=== PATIENT | female | born 1950 | race Caucasian/White ===

== ENCOUNTER → 2020-09-25 | Outpatient (CLI) | payer MEDICARE, OTHER ==
[~2020-09-25] MED LIST: ALDACTONE50 MG PO; ASPIR-LOW81 MG PO; BIOTIN300 MCG PO; BUMEX 1MG TABLET1 MG PO; CALCITRIOL0.25 MCG PO; CITALOPRAM HBR20 MG PO; ELIQUIS2.5 MG PO; FEOSOL325 MG PO; JARDIANCE10 MG PO; LIPITOR40 MG PO; NOVOLIN 70100 UNIT/1 SQ; TOPROL XL25 MG PO; ZYLOPRIM 100 M100 MG PO
== END ==
LOC: KOH-I 15:54
DX: M54.5 Low back pain (principal)
CPT/HCPCS: 72070; 72100